=== PATIENT | male | born 1995 | race Caucasian/White ===

== ENCOUNTER 2016-12-30 14:52 | Emergency (ER) | payer OTHER ==
[~2016-12-30] VITALS: Ht 180.3 cm; Wt 57.0 kg
[~2016-12-30 14:52] MED LIST: FLUOXETINE HCL20 MG PO; MOTRIN600 MG PO; NICOTINE PATCH1 EAC2 TD; NO HOME MEDS; TRAZODONE HCL50 MG PO
[2016-12-30 16:16] VITALS: BP 115/68
== END 2016-12-30 16:21 | disposition home or self-care (01) ==
LOC: RME 14:52 → EME 14:52 → RME 16:21
DX: L25.9 Unspecified contact dermatitis, unspecified cause (principal); T63.481A Toxic effect of venom of other arthropod, accidental (unintentional), initial encounter; F17.200 Nicotine dependence, unspecified, uncomplicated
CPT/HCPCS: 99281; 99283